=== PATIENT | male | born 1970 | race Caucasian/White ===

== ENCOUNTER 2017-05-12 09:51 | Emergency (ER) | payer OTHER ==
[~2017-05-12] VITALS: Ht 185.4 cm; Wt 84.8 kg
[2017-05-12 09:58] VITALS: TEMP 36.9; Ht 185.4 cm; Wt 84.8 kg
[2017-05-12] MEDS ORDERED: SODIUM CHLORIDE 0.9% 1000ML 1,000 ML IV STA ×2 (10:13→11:58)
--- NOTE | 2017-05-12 10:36 | EMERGENCY ROOM VISIT NOTE ---
History Report prepared by Michell: Ashley Yan Under the Supervision of: Erin MonrealO. First contact with patient: 10:09 Chief Complaint: GI ASSESSMENT Stated Complaint: BLOODY DIARRHEA History of Present Illness The patient is a 46 year old male who presents to the Emergency Room with complaints of intermittent bloody diarrhea beginning 1 week ago. The patient states that this has happened before but usually resolves after 2-4 days. He notes that this episode seems to be lasting longer. He reports that he has about 10 episodes a day and notes that it is worse in the morning and the blood is bright red. The patient reports that he had a colonoscopy in 2013 that was normal and notes that he has a history of GERD. He complains of abdominal cramping, abdominal bloating and gas. He denies any rectal swelling or pain and recent travel. He notes that he does not know of anyone else that has been sick around him. The patient states that he has a family history of stomach ulcers. He notes that he drinks about 5 beers a day every day but has no known history of liver damage. Source of History: patient Onset: 1 week ago Position: other (rectal) Symptom Intensity: 10 episodes Quality: other (bright red bleeding) Timing: intermittent Note: He complains of abdominal cramping, abdominal bloating and gas. He denies any rectal swelling or pain and recent travel. Review of Systems See HPI for pertinent positives & negatives. A total of 10 systems reviewed and were otherwise negative. Past Medical & Surgical Medical Problems: (1) GERD (gastroesophageal reflux disease) Family History FH: stomach ulcer Social History Smoking Status: Never Smoker Alcohol Use: heavy Marital Status: in relationship Occupation Status: employed Current/Historical Medications Scheduled Esomeprazole Magnesium (Nexium), 20 MG PO DAILY Fluticasone Propionate (Nasal) (Flonase Allergy Relief), 1 SPRAY NA DAILY Loratadine (Claritin), 10 MG PO DAILY Multiple Vitamins W/ Minerals (Multi For Him), 1 CAP PO DAILY Ranitidine Hcl (Zantac), 150 MG PO BID Allergies Coded Allergies: No Known Allergies (Unverified , 05/12/17) Physical Exam Vital Signs Date Time Temp Pulse Resp B/P (MAP) Pulse Ox O2 Delivery O2 Flow Rate FiO2 05/12/17 13:02 108 05/12/17 12:42 107 20 165/112 98 Room Air 05/12/17 11:46 120 20 159/108 98 05/12/17 10:44 122 05/12/17 09:58 36.9 139 20 176/115 96 Room Air Physical Exam GENERAL: Patient is awake, alert, and in no acute distress. Patient is resting comfortably and mildly anxious EYES: The conjunctivae are clear. The pupils are round and reactive. EARS, NOSE, MOUTH AND THROAT: The nose is without any evidence of any deformity. Mucous membranes are moist tongue is midline NECK: The neck is nontender and supple. RESPIRATORY: Normal respiratory effort is noted there is no evidence of wheezing rhonchi or rales CARDIOVASCULAR: Tachycardic rate and regular rhythm noted there no murmurs rubs or gallops normal S1 normal S2 GASTROINTESTINAL: The abdomen is soft. Bowel sounds are present in all quadrants. Abdomen is nontender MUSCULOSKELETAL/EXTREMITIES: There is no evidence of gross deformity full range of motion is noted in the hips and shoulders SKIN: There is no obvious evidence of any rash. There are no petechiae, pallor or cyanosis noted. NEUROLOGIC: Patient is awake alert and oriented x3 RECTAL: Revealed brown stool which was trace heme positive. Medical Decision & Procedures ER Provider Diagnostic Interpretation: X-ray results as stated below per interpretation by me and the radiologist. ABDOMEN 2VIEW W/PA CHEST RTN FINDINGS: The erect chest reveals no evidence of free air. There is no evidence of focal pulmonary consolidation.] Erect and supine views of the abdomen reveal no abnormally dilated loops of large or small bowel. There are no transition zones to indicate bowel obstruction. There is a left pelvic basin calcification likely representing a phlebolith IMPRESSION: No evidence of bowel obstruction. No evidence of free air. Electronically signed by: Gm Clancy M.D. 05/12/2017 11:33 AM Dictated Date/Time: 05/12/2017 11:32 AM Laboratory Results 05/12/17 10:29 Red Blood Count 4.96, Mean Corpuscular Volume 94.6, Mean Corpuscular Hemoglobin 32.9, Mean Corpuscular Hemoglobin Concent 34.8, Mean Platelet Volume 10.3, Neutrophils (%) (Auto) 71.1, Lymphocytes (%) (Auto) 20.5, Monocytes (%) (Auto) 6.1, Eosinophils (%) (Auto) 1.2, Basophils (%) (Auto) 0.8, Neutrophils # (Auto) 4.22, Lymphocytes # (Auto) 1.22, Monocytes # (Auto) 0.36, Eosinophils # (Auto) 0.07, Basophils # (Auto) 0.05 05/12/17 10:29 Test 05/12/17 10:16 05/12/17 10:29 05/12/17 11:03 05/12/17 11:50 White Blood Count 5.94 K/uL (4.8-10.8) Red Blood Count 4.96 M/uL (4.7-6.1) Hemoglobin 16.3 g/dL (14.0-18.0) Hematocrit 46.9 % (42-52) Mean Corpuscular Volume 94.6 fL (80-100) Mean Corpuscular Hemoglobin 32.9 pg (25-34) Mean Corpuscular Hemoglobin Concent 34.8 g/dl (32-36) Platelet Count 183 K/uL (130-400) Mean Platelet Volume 10.3 fL (7.4-10.4) Neutrophils (%) (Auto) 71.1 % Lymphocytes (%) (Auto) 20.5 % Monocytes (%) (Auto) 6.1 % Eosinophils (%) (Auto) 1.2 % Basophils (%) (Auto) 0.8 % Neutrophils # (Auto) 4.22 K/uL (1.4-6.5) Lymphocytes # (Auto) 1.22 K/uL (1.2-3.4) Monocytes # (Auto) 0.36 K/uL (0.11-0.59) Eosinophils # (Auto) 0.07 K/uL (0-0.5) Basophils # (Auto) 0.05 K/uL (0-0.2) RDW Standard Deviation 40.1 fL (36.4-46.3) RDW Coefficient of Variation 11.7 % (11.5-14.5) Immature Granulocyte % (Auto) 0.3 % Immature Granulocyte # (Auto) 0.02 K/uL (0.00-0.02) Prothrombin Time 10.7 SECONDS (9.0-12.0) Prothromb Time International Ratio 1.0 (0.9-1.1) Activated Partial Thromboplast Time 24.2 SECONDS (21.0-31.0) Partial Thromboplastin Ratio 0.9 Anion Gap 13.0 mmol/L (3-11) Est Creatinine Clear Calc Drug Dose 129.9 ml/min Estimated GFR () 124.6 Estimated GFR (Non- 107.5 BUN/Creatinine Ratio 12.5 (10-20) Calcium Level 9.1 mg/dl (8.5-10.1) Total Bilirubin 0.5 mg/dl (0.2-1) Direct Bilirubin 0.2 mg/dl (0-0.2) Aspartate Amino Transf (AST/SGOT) 44 U/L (15-37) Alanine Aminotransferase (ALT/SGPT) 42 U/L (12-78) Alkaline Phosphatase 93 U/L (45-117) Troponin I < 0.015 ng/ml (0-0.045) Total Protein 7.7 gm/dl (6.4-8.2) Albumin 4.2 gm/dl (3.4-5.0) Lipase 93 U/L (73-393) Ethyl Alcohol mg/dL 92.0 mg/dl (0-3) Urine Color DK YELLOW Urine Appearance CLEAR (CLEAR) Urine pH 5.0 (4.5-7.5) Urine Specific [place] 1.022 (1.000-1.030) Urine Protein NEG (NEG) Urine Glucose (UA) NEG (NEG) Urine Ketones 1+ (NEG) Urine Occult Blood NEG (NEG) Urine Nitrite NEG (NEG) Urine Bilirubin NEG (NEG) Urine Urobilinogen NEG (NEG) Urine Leukocyte Esterase NEG (NEG) Date/Time Source Procedure Growth Status 05/12/17 10:16 Stool C.difficile Toxin B Gene (PCR) - Final No C. difficile toxin B gene detected Complete Laboratory results per my review. Medications Administered Medications (Trade) Dose Ordered Sig/Home Route Start Time Stop Time Status Last Admin Dose Admin Sodium Chloride 1,000 ml @ 999 mls/hr Q1H1M STAT IV 05/12/17 10:13 05/12/17 11:13 DC 05/12/17 10:13 999 MLS/HR Pantoprazole Sodium 40 mg/ Syringe 10 ml @ 5 mls/min NOW ONCE IV 05/12/17 11:30 05/12/17 11:31 DC 05/12/17 12:09 5 MLS/MIN Famotidine (Pepcid 20mg/100 ml) 20 mg ONE STAT IV 05/12/17 11:23 05/12/17 11:25 DC 05/12/17 11:44 20 MG Thiamine HCl (Vitamin B-1 Inj) 100 mg NOW STAT IV 05/12/17 11:23 05/12/17 11:25 DC 05/12/17 11:41 100 MG Sodium Chloride 1,000 ml @ 999 mls/hr Q1H1M STAT IV 05/12/17 11:58 05/12/17 12:58 DC 05/12/17 12:08 999 MLS/HR ECG Indication: tachycardia Rate (beats per minute): 125 Rhythm: sinus tachycardia Findings: no ectopy, other (no ST segment abnormalities) Comparison ECG Date: no prior available ED Course 1009: The patient was evaluated in room C6. A complete history and physical examination were performed. 1013:NSS 1,000 ml @ 999 mls/hr IV. 1123: Thiamine HCl 100mg IV, Famotidine 20mg IV. 1130: Pantoprazole Sodium 40mg/Syringe 10ml @ 5mls/min IV. 1158: NSS 1,000 ml @ 999 mls/hr IV. 1257: I spoke to Dr. Javier of GI about the patient's case. 1307: Upon reevaluation, the patient is doing well. I discussed the results and treatment plan with the patient. He verbalized agreement of the treatment plan. The patient was discharged home. Medical Decision Differential diagnosis: Etiologies such as diverticulosis, AVM, coagulopathy, colitis, inflammatory bowel disease, malignancy, [place]e tear, esophagitis, peptic ulcer disease , variceal bleed, gastritis, epistaxis, fissure, hemorrhoids, as well as others were entertained. Medication Reconciliation: I attest that I have personally reviewed the patient' s current medications list. Patient was found to have a slightly elevated blood pressure due to circumstances. I do not believe that the patient requires hypertension monitoring. The patient is a 46-year-old male who presented to the emergency department for evaluation of GI bleeding. The patient has had episodic GI bleeding which she describes as bright red nature. On exam the patient did not have bright red blood per rectum. Trace heme positive stool. The patient had no definite source for the bleeding noted on exam. I discussed the patient's laboratory and radiographic studies with him. He doesn't a history of alcohol use. I discussed his case with the on-call shoe lining fitter. At this time I feel the patient can follow-up as an outpatient for a formal endoscopic evaluation. He did not have any abdominal pain. His vital signs did reveal hypertension with some tachycardia. I'm unsure if this is related to the patient's alcohol use. This reason he was instructed to drink plenty clear liquids and continue all medications as prescribed. I also instructed them to avoid any further alcohol and beverages. He was also encouraged to return to the emergency department immediately if symptoms change worsen or if the need arises. Impression Primary Impression: Lower GI bleeding Additional Impression: Alcohol abuse Scribe Attestation The scribe's documentation has been prepared under my direction and personally reviewed by me in its entirety. I confirm that the note above accurately reflects all work, treatment, procedures, and medical decision making performed by me. Departure Information Dispostion Home / Self-Care Prescriptions Ranitidine Hcl (ZANTAC) 150 Mg Tab 150 MG PO BID, #60 TAB Prov: Jameel Mcgovern, DO 05/12/17 Referrals No Doctor, Assigned (PCP) Forms HOME CARE DOCUMENTATION FORM, IMPORTANT VISIT INFORMATION Patient Instructions GI Bleeding - [facility], [facility] Additional Instructions Continue all medications as prescribed. Avoid any further alcoholic beverages. Drink plenty clear liquids. Return to the emergency department immediately if symptoms change worsen or the need arises. Your blood pressure was found to be elevated in the emergency department today. It is possible this is secondary to her presentation to the emergency department or could signify an underlying hypertension problem will need to be followed up by her primary care physician. I would recommend a recheck with your family doctor soon as possible follow-up with the shoe lining fitter this week for reevaluation. Return to the emergency department immediately if symptoms change worsen or the need arises. Problem Qualifiers
[2017-05-12 10:58] LABS: BASO % 0.8 %; BASO ABS # 0.05 K/uL (0-0.2); COMPLETE YES; EOS % 1.2 %; HEMATOCRIT 46.9 % (42-52); IG% 0.3 %; LYMPH % 20.5 %; LYMPH ABS # 1.22 K/uL (1.2-3.4); MEAN CELL VOLUME 94.6 fL (80-100); MEAN CORPUSCULAR HEMOGLOBIN 32.9 pg (25-34); MEAN CORPUSCULAR HGB CONC 34.8 g/dl (32-36); MEAN PLATELET VOLUME 10.3 fL (7.4-10.4); MONO % 6.1 %; NEUT % 71.1 %; PLATELET COUNT 183 K/uL (130-400); RED BLOOD COUNT 4.96 M/uL (4.7-6.1); WHITE BLOOD COUNT 5.94 K/uL (4.8-10.8)
[2017-05-12 11:07] LABS: PARTIAL THROMBOPLASTIN RATIO 0.9; PROTHROMBIN TIME (PATIENT) 10.7 SECONDS (9.0-12.0)
[2017-05-12 11:19] LABS: ALT/SGPT 42 U/L (12-78); AST/SGOT 44 U/L (15-37); BLOOD UREA NITROGEN 10 mg/dl (7-18); BUN/CREATININE RATIO 12.5 (10-20); CALCIUM 9.1 mg/dl (8.5-10.1); CARBON DIOXIDE 21 mmol/L (21-32); CHLORIDE 105 mmol/L (98-107); CREATININE 0.82 mg/dl (0.60-1.40); GLUCOSE 91 mg/dl (70-99); POTASSIUM 3.8 mmol/L (3.5-5.1); SODIUM 139 mmol/L (136-145)
[2017-05-12] MEDS ORDERED: FAMOTIDINE 20MG/102 ML D5W IV STA (11:23)
[2017-05-12] MEDS ORDERED: THIAMINE HCL 100 MG/ML 2 ML VIAL IV STA (11:23)
[2017-05-12 11:24] LABS: ALKALINE PHOSPHATASE 93 U/L (45-117)
[2017-05-12] MEDS ORDERED: PANTOprazole INJ 40 MG in SYRINGE 0 ML IV ONE (11:30)
--- NOTE | 2017-05-12 11:34 | DIAGNOSTIC IMAGING REPORT ---
ABDOMEN 2VIEW W/PA CHEST RTN CLINICAL HISTORY: Abdominal pain and bloody stools COMPARISON STUDY: No previous studies for comparison. FINDINGS: The erect chest reveals no evidence of free air. There is no evidence of focal pulmonary consolidation.] Erect and supine views of the abdomen reveal no abnormally dilated loops of large or small bowel. There are no transition zones to indicate bowel obstruction. There is a left pelvic basin calcification likely representing a phlebolith IMPRESSION: No evidence of bowel obstruction. No evidence of free air. Electronically signed by: Gm Clancy M.D. 05/12/2017 11:33 AM Dictated Date/Time: 05/12/2017 11:32 AM
[2017-05-12] MEDS ORDERED: ESOM20CA PO (11:49)
[2017-05-12] MEDS ORDERED: FLUT0.15 (11:49)
[2017-05-12] MEDS ORDERED: CLR10 PO (11:49)
[2017-05-12] MEDS ORDERED: MULT1CAP17 PO (11:49)
[2017-05-12 12:05] LABS: URINE APPEARANCE CLEAR (CLEAR); URINE BILIRUBIN NEG (NEG); URINE COLOR DK YELLOW; URINE NITRITE NEG (NEG); URINE SPECIFIC GRAVITY 1.022 (1.000-1.030); UROBILINOGEN NEG (NEG)
[2017-05-12 12:08] LABS: MANUAL MICROSCOPIC REQUIRED? NO; REVIEW REQ? NO
[2017-05-12 12:42] VITALS: BP 165/112; O2SAT 98
[2017-05-12 13:02] VITALS: PULSE 108
[2017-05-12] MEDS ORDERED: RANI150T3 PO (13:02)
--- NOTE | 2017-05-14 18:31 | Pharmacy Progress Note ---
ED Pharmacist Culture FollowUp Date of Service: May 14, 2017. Patient's stool cx preliminary results are showing campylobacter jejuni. The patient was seen in the ER on 05/12 for a 1 week h/o intermittent bloody diarrhea. He was also c/o abdominal pain, bloating and gas. His H/H was stable , Xray abdomen unremarkable. Patient was discharged and was to f/u with GI as outpatient. Contacted patient via phone today ([phone]) to determine if he still had the diarrhea as campy jejuni is often a self limiting infection and often does not require antibiotics. He stated he was still experiencing diarrhea and was trying to get an appointment with GI still. He stated the diarrhea had improved a little bit. Per discussion with Dr Frost, will begin Zithromax 500mg daily x 3 days as diarrhea had not resolved and has been present for > 1 week. Rx called to [facility] Fregoso ([phone]) per patient's request.
[2017-05-22 10:45] LABS: O&P SOURCE OTHER-STOOL
== END 2017-05-12 13:21 | disposition home or self-care (01) ==
LOC: C.EDC 10:32
DX: K92.2 Gastrointestinal hemorrhage, unspecified (principal); F10.10 Alcohol abuse, uncomplicated; R19.7 Diarrhea, unspecified; R00.0 Tachycardia, unspecified; K21.9 Gastro-esophageal reflux disease without esophagitis; Z79.899 Other long term (current) drug therapy; Z83.79 Family history of other diseases of the digestive system